=== PATIENT | female | born 1975 | race Caucasian/White ===

== ENCOUNTER 2018-05-02 21:25 | Emergency (ER) | payer SELFPAY ==
[2018-05-02 21:45] LABS: URINE HCG POC HCG NEGATIVE (Negative)
[2018-05-02] MEDS: oxyCODONE/APAP 5/325 1 TAB TABLET PO (22:09)
== END 2018-05-02 22:32 | disposition home or self-care (01) ==
LOC: ER 22:32
DX: S13.4XXA Sprain of ligaments of cervical spine, initial encounter (principal); M54.6 Pain in thoracic spine; W16.012A Fall into swimming pool striking water surface causing other injury, initial encounter; Y93.89 Activity, other specified; Y92.34 Swimming pool (public) as the place of occurrence of the external cause; Y99.8 Other external cause status
CPT/HCPCS: 72125; 72128; 81025; 99284